=== PATIENT | female | born 1970 | race Caucasian/White ===

== ENCOUNTER 2020-11-11 14:28 | Outpatient (CLI) | payer BC | END 2020-11-11 14:29 | disposition home or self-care (01) | LOC: CSHULT 14:28 | PROVIDERS: ATTEND Family Medicine | DX: N92.0 Excessive and frequent menstruation with regular cycle (principal); D25.1 Intramural leiomyoma of uterus | CPT/HCPCS: 76856 ==

== ENCOUNTER 2022-01-17 10:52 | Outpatient (CLI) | payer BC ==
[2022-01-17 11:36] LABS: Hemoglobin 12.5 g/dL (12.0-15.5); Mean Corpuscular HGB CONC 31.5 g/dL (32.0-36.0); Mean Corpuscular Hemoglobin 23.5 pg (27.0-33.0); Mean Corpuscular Volume 74.6 fl (81.6-98.3); Mean Platelet Volume 10.9 fl (7.4-10.4); Platelet Count 252 10x3/uL (150-450); RBC Distribution Width 19.3 % (11.5-14.5); Red Blood Cell (RBC) Count 5.32 10x6/uL (3.90-5.03); White Blood Cell (WBC) Count 8.7 10x3/uL (3.5-10.5)
[2022-01-17 11:44] LABS: Bilirubin Neg (Negative); Blood, Urine Negative (Negative); Clarity Clear (Clear); Glucose, Urine (Dipstick) Normal (Negative); Ketone, Urine Negative (Negative); Leukocyte Negative (Negative); Nitrite Negative (Negative); Protein, Urine (Dipstick) Negative (Neg-Trace); Urobilinogen Normal mg/dL (Less than 2)
[2022-01-17 11:53] LABS: BHCG - Serum Negative (NEGATIVE); Pregs Control Background? CLEAR/WHITE (CLR/WHITE); Pregs Control Bar Appear? YES (CONTROL BAR)
[2022-01-17 12:02] LABS: PTT 26.3 sec (22.0-33.0); Prothrombin Time 10.4 sec (9.5-12.1)
== END 2022-01-17 10:53 | disposition home or self-care (01) ==
LOC: CSHLAB 10:52
PROVIDERS: ATTEND Obstetrics & Gynecology
DX: Z01.812 Encounter for preprocedural laboratory examination (principal); Z20.822 Contact with and (suspected) exposure to COVID-19; N93.9 Abnormal uterine and vaginal bleeding, unspecified; D25.9 Leiomyoma of uterus, unspecified; N80.0 Endometriosis of uterus
CPT/HCPCS: 81003; 84703; 85027; 85610; 85730; 87811

== ENCOUNTER 2022-01-20 05:45 | Day surgery (SDC) | payer BC ==
[2022-01-19 10:21] VITALS: BMI 21.5
[2022-01-20] MEDS ORDERED: Lidocaine 1% MPF 2 ML VIAL ONE (06:00)
[2022-01-20] MEDS ORDERED: EPINEPHrine 1 MG/ML AMP ONE (06:26)
[2022-01-20] MEDS ORDERED: Bupivacaine PF 0.5% 30 ML VIAL ONE (06:26)
[2022-01-20] MEDS ORDERED: Methylene Blue 50 MG/10 ML AMPUL ONE (06:28)
[2022-01-20] MEDS ORDERED: Fentanyl 250 MCG/5 ML VIAL ONE (06:31)
[2022-01-20] MEDS ORDERED: PROPOFOL 20 ML ONE ×2 (06:31→07:55)
[2022-01-20] MEDS ORDERED: Midazolam HCl 2 mg/2 ml Vial ONE ×2 (06:31→06:53)
[2022-01-20] MEDS ORDERED: Dexamethasone 20 MG/5 ML VIAL ONE (06:32)
[2022-01-20] MEDS ORDERED: Lidocaine 1% PF 5 ML VIAL ONE (06:32)
[2022-01-20] MEDS ORDERED: Glycopyrrolate 0.2 MG/ML 5 ML SYRINGE ONE (06:32)
[2022-01-20] MEDS ORDERED: Ketorolac Tromethamine 30 MG/ML VIAL ONE (06:32)
[2022-01-20] MEDS ORDERED: Rocuronium Bromide 10 MG/ML (10ML VIAL) ONE (06:32)
[2022-01-20] MEDS ORDERED: Ondansetron PF 4 MG/2 ML Vial ONE (06:32)
[2022-01-20] MEDS ORDERED: Lidocaine 4% PF 5 ML AMP ONE (06:32)
[2022-01-20] MEDS ORDERED: CEFAZOLIN 2 GM VIAL ONE (06:50)
[2022-01-20] MEDS ORDERED: Meperidine HCl/PF 25 MG/ML VIAL ONE (09:04)
[2022-01-20] MEDS ORDERED: Acetaminophen 500 MG TAB ONE (10:17)
[2022-01-20 12:41] LABS: Platelet Count 220 10x3/uL (150-450)
== END 2022-01-20 14:20 | disposition home or self-care (01) ==
LOC: CSHSDC 05:45
PROVIDERS: ATTEND Obstetrics & Gynecology
PROC: 0UB74ZZ Excision of Bilateral Fallopian Tubes, Percutaneous Endoscopic Approach (ICD-10-PCS; principal; 2022-01-20)
PROC: 0UT94ZZ Resection of Uterus, Percutaneous Endoscopic Approach (ICD-10-PCS; principal; 2022-01-20)
DX: D25.9 Leiomyoma of uterus, unspecified (principal); N80.0 Endometriosis of uterus; N93.9 Abnormal uterine and vaginal bleeding, unspecified; I10 Essential (primary) hypertension; Z79.899 Other long term (current) drug therapy
CPT/HCPCS: 85014; 85018; 85049; 88307; C1776; J0171; J0690; J1100; J1885; J2175; J2250; J2405; J2704; J3010; Q9968; S0020

== ENCOUNTER 2022-03-02 10:01 | Outpatient (CLI) | payer BC | END 2022-03-02 10:02 | disposition home or self-care (01) | LOC: CSHMAMMO 10:01 | PROVIDERS: ATTEND Obstetrics & Gynecology | DX: Z12.31 Encounter for screening mammogram for malignant neoplasm of breast (principal); Z13.820 Encounter for screening for osteoporosis | CPT/HCPCS: 77063; 77067; 77080 ==

== ENCOUNTER 2024-04-10 08:29 | Outpatient (CLI) | payer BC | END 2024-04-10 08:30 | disposition home or self-care (01) | LOC: CSHMAMMO 08:29 | PROVIDERS: ATTEND Obstetrics & Gynecology | DX: Z12.31 Encounter for screening mammogram for malignant neoplasm of breast (principal); Z13.820 Encounter for screening for osteoporosis | CPT/HCPCS: 77067; 77080 ==